=== PATIENT | male | born 1995 | race Two or more races ===

== ENCOUNTER 2020-04-27 18:33 | Emergency (ER) | payer MEDICAID ==
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
--- NOTE | 2020-04-28 11:20 | US ---
EXAM DATE: 04/27/20 PATIENT'S AGE: 24 Testicular ultrasound: Multiple real-time images of both testicles were obtained. Real-time and Doppler evaluation was obtained. Comparison: No prior testicular imaging is available. Findings: Both testicles have a homogeneous ultrasound appearance. Both venous and arterial blood flow are seen. Small epididymal cyst noted on the left side measuring 3.5 mm. Hypoechoic area is seen within the left epididymis measuring 8 mm which is nonspecific. Small epididymal hematoma is within the differential. Small epididymal cyst is noted on the right side measuring 4 mm. Measurements: Right testicle: 3.7 x 2.2 x 2.4 cm Left testicle: 4.2 x 2.1 x 2.8 cm Impression: 1. No intratesticular abnormality is seen. 2. Small epididymal cyst on both sides. 3. 8 mm hypoechoic area within the left epididymis which is nonspecific. Small epididymal hematoma is within the differential. Note: Recommend follow-up testicular ultrasound in 6 months to make sure the hypoechoic area within the epididymis resolves or is stable. If patient's symptoms do not resolve, earlier ultrasound could be obtained. Diagnostic code #3 This report was dictated in MDT Report Signed by Proxy. [email or web address]
[2020-05-01 18:07] LABS: C.TRACHOMATIS BY TMA Negative (Negative); N.GONORRHOEAE BY TMA Negative (Negative)
== END 2020-04-27 21:02 | disposition other institution (70) ==
LOC: MW.ED 18:33
DX: N50.3 Cyst of epididymis (principal)
CPT/HCPCS: 76870; 76870-26; 81001; 87491; 87591; 93976; 93976-26; 99283; 99284-25

== ENCOUNTER 2022-08-15 19:11 | Inpatient (IN) | payer BC, MEDICAID ==
[2022-08-15] MEDS ORDERED: Sodium Chloride 0.9% 1,000 ML IV ONE ×2 (20:04→20:11)
[2022-08-15] MEDS ORDERED: cefTRIAXone 1 GM in Sodium Chloride 0.9% 50 ML IV ONE (20:08)
[2022-08-15] MEDS ORDERED: Ketorolac 30 MG/ML SDV IVPUSH ONE (20:08)
[2022-08-15] MEDS ORDERED: Acetaminophen 500 MG Tab PO ONE (20:08)
[2022-08-15] MEDS ORDERED: Morphine 4 MG/ML Syringe IVPUSH ONE (20:08)
[2022-08-15] MEDS ORDERED: Sodium Chloride 0.9% 500 ML IV SCH (20:30)
[2022-08-15 21:08] LABS: CARBON DIOXIDE,CO2 29.4 mmol/L (21.0-32.0)
[2022-08-15] MEDS ORDERED: Magnesium Oxide 400 MG Tab PO ONE (21:31)
[2022-08-15] MEDS ORDERED: HYDROmorphone 1 MG/ML Syringe IVPUSH ONE (21:31)
[2022-08-15] MEDS ORDERED: Potassium Chloride 20 MEQ Tab.ER PO ONE (21:31)
[2022-08-15] MEDS ORDERED: Iopamidol 755 MG/ML 500 ML Multipack Bottle IVPUSH STA (22:04)
[2022-08-16] MEDS ORDERED: Acetaminophen 325 MG Tab PO PRN (00:02)
[2022-08-16] MEDS ORDERED: oxyCODONE 5 MG Tab PO PRN (00:02)
[2022-08-16] MEDS ORDERED: Morphine 2 MG/ML SYRINGE IVPUSH PRN (00:02)
[2022-08-16] MEDS ORDERED: Sodium Chloride 0.9% 1,000 ML IV SCH (00:15)
[2022-08-16] MEDS: Piperacillin/Tazobactam 3.375 GM in Sodium Chloride 0.9% 50 ML IV SCH ×3 (01:10→12:43)
[2022-08-16 06:06] LABS: CARBON DIOXIDE,CO2 26.8 mmol/L (21.0-32.0); POTASSIUM,K 3.4 mmol/L (3.5-5.1)
[2022-08-16] MEDS ORDERED: Albuterol/Ipratropium 3.0-0.5 MG/3 ML Neb Soln NEB PRN (06:48)
[2022-08-16] MEDS ORDERED: Ondansetron 4 MG/2 ML SDV IVPUSH PRN (06:48)
[2022-08-16] MEDS ORDERED: Polyethylene Glycol 3350 Powder 17 GM Packet PO PRN (06:48)
[2022-08-16] MEDS ORDERED: Potassium Chloride 20 MEQ Tab.ER PO ONE (07:15)
[2022-08-16] MEDS ORDERED: VANCOmycin 1.5 GM/300 ML 1.5 GM in Premix Bag 1 BAG IV SCH (09:00)
[2022-08-16] MEDS ORDERED: cefTRIAXone 1 GM in Sodium Chloride 0.9% 50 ML IV SCH (20:00)
== END 2022-08-16 13:49 | DRG 872 ==
LOC: MW.ED 19:11 → MW.MS 22:40
PROVIDERS: ADMIT Internal Medicine; ATTEND Internal Medicine
DX: A41.9 Sepsis, unspecified organism (principal); N17.9 Acute kidney failure, unspecified; L03.113 Cellulitis of right upper limb; R65.20 Severe sepsis without septic shock; F15.10 Other stimulant abuse, uncomplicated; Z20.822 Contact with and (suspected) exposure to COVID-19; H54.7 Unspecified visual loss; H52.209 Unspecified astigmatism, unspecified eye; Z98.52 Vasectomy status
CPT/HCPCS: 36415; 73130-26-RT; 73130-RT; 73206-26-RT; 73206-RT; 80048; 80053; 80305-QW; 81001; 83605; 83735; 84484; 85025; 85610; 85730; 87040; 93005; 96365; 96366; 96367; 96375; 99285-25; A9270-GY; J0696; J1170; J1885; J2270; J2543; J3370; J7030; J7040; J7050; Q9967; U0002

== ENCOUNTER 2022-09-17 01:07 | Emergency (ER) | payer MEDICAID ==
[2022-09-17] MEDS ORDERED: Lactated Ringers 1,000 ML IV SCH (01:30)
[2022-09-17 02:00] LABS: CARBON DIOXIDE,CO2 25.4 mmol/L (21.0-32.0); POTASSIUM,K 3.2 mmol/L (3.5-5.1)
[2022-09-17] MEDS ORDERED: Piperacillin/Tazobactam 4.5 GM in Sodium Chloride 0.9% 100 ML IV ONE (02:40)
[2022-09-17] MEDS ORDERED: VANCOmycin 1.5 GM/300 ML 1.5 GM in Premix Bag 1 BAG IV ONE (02:45)
[2022-09-17 02:56] LABS: CORONAVIRUS COVID-19 NAA NEGATIVE (NEGATIVE); INFLUENZA A NAA NEGATIVE (NEGATIVE); INFLUENZA B NAA NEGATIVE (NEGATIVE); RESPIRATORY SYNCYTIAL VIR NAA NEGATIVE (NEGATIVE)
[2022-09-17] MEDS ORDERED: Iopamidol 755 MG/ML 500 ML Multipack Bottle IVPUSH ONE (02:56)
[2022-09-17] MEDS ORDERED: Acetaminophen 325 MG Tab PO ONE (05:09)
[2022-09-17] MEDS ORDERED: Ibuprofen 400 MG Tab PO ONE (05:09)
== END 2022-09-17 09:33 | disposition home or self-care (01) ==
LOC: MW.ED 01:07
DX: M96.89 Other intraoperative and postprocedural complications and disorders of the musculoskeletal system (principal); Z20.822 Contact with and (suspected) exposure to COVID-19
CPT/HCPCS: 0241U; 36415; 76882; 80053; 83605; 83690; 85025; 85610; 85652; 85730; 86140; 86850; 86900; 86901; 87040; 96361; 96365; 96366; 96368; 99284; A9270; J2543; J3370; J7050; J7120; Q9967

== ENCOUNTER 2022-10-05 21:28 | Emergency (ER) | payer MEDICAID | END 2022-10-05 22:07 | disposition home or self-care (01) | LOC: MW.ED 21:28 | DX: Z02.89 Encounter for other administrative examinations (principal) | CPT/HCPCS: 99283 ==